=== PATIENT | female | born 1960 | race Caucasian/White ===

== ENCOUNTER 2022-01-23 07:00 | Day surgery (SDC) | payer MEDICAID ==
[2022-01-20 11:15] LABS: BASOPHILS % (AUTO) 0.6 % (0-1); EOSINOPHILS # (AUTO) 0.1 X10'3 (0-0.9); EOSINOPHILS % (AUTO) 1.7 % (0-6); MEAN CORPUSCULAR HEMOGLOBIN 33.3 PG (27.0-31.0); MEAN CORPUSCULAR HGB CONC 33.4 g/dL (33.0-36.5); MEAN CORPUSCULAR VOLUME 99.8 FL (78-98); MEAN PLATELET VOLUME 6.8 FL (7.4-10.4); MONOCYTES # (AUTO) 0.6 X10'3 (0-0.9); MONOCYTES % (AUTO) 7.3 % (2-12); NEUTROPHILS # (AUTO) 6.2 X10'3 (1.8-7.7); NEUTROPHILS % (AUTO) 77.4 % (42-75); PRE OP HEMATOCRIT 48.3 % (35.0-45.0); PRE OP HEMOGLOBIN 16.1 g/dL (12.0-16.0); PRE OP PLATELET COUNT 260 X10'3 (140-440); RED BLOOD COUNT 4.84 X10'6 (4.20-5.60); RED CELL DISTRIBUTION WIDTH 13.6 % (11.5-14.5)
[2022-01-20 11:27] LABS: ALBUMIN 3.9 G/DL (3.4-5.0); ALBUMIN/GLOBULIN RATIO 1.2 (1.1-1.5); ALKALINE PHOSPHATASE 93 IU/L (46-116); BLOOD UREA NITROGEN 14 MG/DL (7-18); CALCIUM 8.8 MG/DL (8.5-10.1); CHLORIDE 103 MMOL/L (99-107); CREATININE 0.56 MG/DL (0.40-0.90); PRE OP ALT 29 U/L (30-65); PRE OP ANION GAP 4 (8-16); PRE OP AST 19 U/L (10-37); PRE OP BILIRUB, TOTAL 0.3 MG/DL (0.0-1.0); PRE OP GLUCOSE 105 MG/DL (70-104); PRE OP POTASSIUM 4.4 MMOL/L (3.4-5.1); PRE OP SODIUM 138 MMOL/L (135-145); TOTAL PROTEIN 7.1 G/DL (6.4-8.2); eGFR > 90 ML/MIN
[2022-01-23] VITALS (11 sets, daily range): BP systolic 117–159; BP diastolic 63–84
[~2022-01-23] VITALS: Ht 157.5 cm; Wt 45.0 kg
[~2022-01-23 07:00] MED LIST: HYDR-3972 PO; ceFAZolin inj. 2,000 MG in dextrose 5%-water 100 ML IV ONE; famotidine 20mg tablet PO ONE; ringers solution, lacted 1,000 ML IV SCH
[2022-01-23] MEDS ORDERED: LIDOcaine 0.5% (5mg/ml) 50ml vial ONE (07:08)
[2022-01-23] MEDS ORDERED: BUPIVAcaine/PF 2.5 mg/ml (0.25%) 30ml vial ONE (07:12)
[2022-01-23] MEDS ORDERED: fentaNYL/PF 50MCG/1 ML 2ML syringe IV PRN ×2 (07:55)
[2022-01-23] MEDS ORDERED: labetalol 20mg/4ml (5mg/ml) syringe IV PRN (07:55)
[2022-01-23] MEDS ORDERED: ondansetron/PF 4mg/2ml inj IV PRN (07:55)
[2022-01-23] MEDS ORDERED: morphine 4 MG/ML inj SYRINge IV PRN (07:55)
[2022-01-23] MEDS ORDERED: ringers solution, lacted 1,000 ML IV SCH (07:55)
[2022-01-23] MEDS ORDERED: hydrALAZINE 20mg/ml inj. IV PRN (07:55)
[2022-01-23] MEDS ORDERED: morphine 2 MG/ML inj. syringe IV PRN (07:55)
[2022-01-23] MEDS ORDERED: fentaNYL/PF 50MCG/1 ML 2ML syringe ONE (10:57)
[2022-01-23] MEDS ORDERED: midazolam 1 mg/ML 2ml injection ONE (10:57)
--- NOTE | 2022-01-23 11:58 | NUR ---
Received from OR via [facility], accompanied by Anesthesiologist DR WARREN and report given by Anesthesiolgist. PT IS AWAKE AND ANSWERING QUESTIONS APPROPRIATELY AND SRIVASTAVA. PT PLACED ON BEDSIDE MONITOR, VSS. PT ON RA ON TOLERATING WELL WITH O2 SAT > 96%. PT HAS 20G PIV TO RT FA WITH LR INFUSING ORDERED. PT HAS DRSG WITH KINA WRAP TO LEFT HAND WELL ELBOW THAT ARE CDI. PT HAS DRSG THAT HAS FOAM TAPE TO LEFT MIDDLE FINGER THAT IS CDI. PT IS ABLE TO MOVE FINGERS ON LEFT HAND. PT DENIES PAIN AT THIS TIME. WILL CONTINUE TO ASSESS
--- NOTE | 2022-01-23 13:40 | NUR ---
ALL DISCHARGE CRITERIA HAS BEEN MET. VSS, PAIN AT A TOLERABLE LEVEL, VOIDING AND ABLE TO SAFELY AMBULATE AND TRANSFER SELF. IV TAKEN OUT WITHOUT ANY COMPLICATIONS. ALL DISCHARGE INSTRUCTIONS COVERED WITH PATIENT AND ALL QUESTIONS ANSWERED. PATIENT TAKEN OUT VIA WHEELCHAIR TO PERSONAL VEHICLE WHERE FRIEND DROVE PATIENT HOME.
== END 2022-01-23 13:34 | disposition home or self-care (01) ==
LOC: PAS 07:00
PROVIDERS: ATTEND Orthopaedic Surgery Hand Surgery
DX: G56.02 Carpal tunnel syndrome, left upper limb (principal); G56.22 Lesion of ulnar nerve, left upper limb; G47.30 Sleep apnea, unspecified; M19.90 Unspecified osteoarthritis, unspecified site; F32.9 Major depressive disorder, single episode, unspecified; F43.10 Post-traumatic stress disorder, unspecified; Q85.09 Other neurofibromatosis; Z79.899 Other long term (current) drug therapy; Z98.890 Other specified postprocedural states; Z90.710 Acquired absence of both cervix and uterus
CPT/HCPCS: 36415; 64718; 64721; 64788; 80053; 82948; 85025; 87811; 93005; J0690; J2250; J2270; J3010; J3490; J7030; J7060; J7120; Z7506; Z7512; A4215; A6449

== ENCOUNTER 2022-02-27 05:55 | Day surgery (SDC) | payer MEDICAID ==
[2022-02-14 11:52] LABS: BASOPHILS # (AUTO) 0.1 X10'3 (0-0.2); BASOPHILS % (AUTO) 0.8 % (0-1); EOSINOPHILS # (AUTO) 0.3 X10'3 (0-0.9); EOSINOPHILS % (AUTO) 3.8 % (0-6); LYMPHOCYTES # (AUTO) 1.2 X10'3 (1.1-4.8); LYMPHOCYTES % (AUTO) 17.2 % (21-51); MEAN CORPUSCULAR HGB CONC 33.4 g/dL (33.0-36.5); MEAN CORPUSCULAR VOLUME 98.7 FL (78-98); MEAN PLATELET VOLUME 6.9 FL (7.4-10.4); MONOCYTES # (AUTO) 0.7 X10'3 (0-0.9); MONOCYTES % (AUTO) 10.3 % (2-12); NEUTROPHILS # (AUTO) 4.8 X10'3 (1.8-7.7); NEUTROPHILS % (AUTO) 67.9 % (42-75); PRE OP HEMATOCRIT 44.7 % (35.0-45.0); PRE OP PLATELET COUNT 266 X10'3 (140-440); RED BLOOD COUNT 4.53 X10'6 (4.20-5.60); RED CELL DISTRIBUTION WIDTH 13.4 % (11.5-14.5)
[2022-02-14 11:59] LABS: ALBUMIN 3.9 G/DL (3.4-5.0); ALBUMIN/GLOBULIN RATIO 1.3 (1.1-1.5); ALKALINE PHOSPHATASE 87 IU/L (46-116); BLOOD UREA NITROGEN 17 MG/DL (7-18); BUN/CREATININE RATIO 27.9 (6.6-38.0); CHLORIDE 104 MMOL/L (99-107); CREATININE 0.61 MG/DL (0.40-0.90); PRE OP ALT 20 U/L (30-65); PRE OP ANION GAP 7 (8-16); PRE OP AST 16 U/L (10-37); PRE OP BILIRUB, TOTAL 0.4 MG/DL (0.0-1.0); PRE OP GLUCOSE 100 MG/DL (70-104); PRE OP POTASSIUM 4.6 MMOL/L (3.4-5.1); PRE OP SODIUM 141 MMOL/L (135-145); TOTAL CARBON DIOXIDE 29.8 MMOL/L (24-32); TOTAL PROTEIN 6.9 G/DL (6.4-8.2); eGFR > 90 ML/MIN
[2022-02-27] VITALS (9 sets, daily range): BP systolic 119–167; BP diastolic 80–100
[~2022-02-27] VITALS: Ht 157.5 cm; Wt 44.3 kg
[~2022-02-27 05:55] MED LIST changes: +CEFAZOLIN IV ONE; +D5W IV ONE; -ceFAZolin inj. 2,000 MG in dextrose 5%-water 100 ML IV ONE; -ringers solution, lacted 1,000 ML IV SCH; +ringers solution, lacted 500 ML IV SCH
[2022-02-27] MEDS ORDERED: BUPIVAcaine/PF 2.5 mg/ml (0.25%) 30ml vial ONE (06:35)
[2022-02-27] MEDS ORDERED: ringers solution, lacted 1,000 ML IV SCH (08:00)
[2022-02-27] MEDS ORDERED: ondansetron/PF 4mg/2ml inj IV PRN (08:00)
[2022-02-27] MEDS ORDERED: morphine 4 MG/ML inj SYRINge IV PRN (08:00)
[2022-02-27] MEDS ORDERED: morphine 2 MG/ML inj. syringe IV PRN (08:00)
[2022-02-27] MEDS ORDERED: meperidine/PF 25mg/ml syringe IV PRN ×3 (08:00)
[2022-02-27] MEDS ORDERED: proCHLORperazine 10 MG/2 ml inj IV PRN (08:00)
[2022-02-27] MEDS ORDERED: sevoflurane 250ml liquid IH ONE (08:02)
[2022-02-27] MEDS ORDERED: cefazolin/dext.iso 2gm/100ml BAG IV ONE (08:02)
[2022-02-27] MEDS ORDERED: fentaNYL/PF 50MCG/1 ML 2ML syringe ONE (08:09)
[2022-02-27] MEDS ORDERED: midazolam 1 mg/ML 2ml injection ONE (08:11)
[2022-02-27] MEDS ORDERED: propofol inj 20 ML IV ONE (08:35)
--- NOTE | 2022-02-27 09:01 | NUR ---
Received from OR via [facility], accompanied by Anesthesiologist DR ESPINOSA and report given by Anesthesiolgist. PT PRESENTS WITH 20G LEFT WRIST, DRESSING ON RIGHT ARM CDI, VSS. PT CAME OUT OF OR WITH LMA IN AND O2 MASK 10L. VSS. Addendum: 02/27/22 at 0913 by Kusum Woods RN, RN Amended: Links added.
--- NOTE | 2022-02-27 09:09 | NUR ---
LMA REMOVED PT SPO2 100% 6L MASK. Addendum: 02/27/22 at 0913 by Kusum Woods RN, RN Amended: Links added.
--- NOTE | 2022-02-27 10:11 | NUR ---
PT UP AND DRESSED, ABLE TO VOID, VSS, DENIES ANY PAIN, PIV D/CD- CANNULA INTACT, DISCUSSED HOME CARE FOR NASAL IRRIGATION AND MEDICATIONS, PT USED OCEAN SPRAY AND OINTMENT BEFORE LEAVING, ALL QUESTIONS ANSWERED, FRESH GAUZE PLACE UNDER NOSE, PT TAKEN WITH SUPPLIES AND BELONGINGS TO VEHICLE, TRANSPORTED BY FRIEND HOME. Addendum: 02/27/22 at 1014 by Kusum Woods RN, RN Amended: Links added.
== END 2022-02-27 10:11 | disposition home or self-care (01) ==
LOC: PAS 05:55
PROVIDERS: ATTEND Orthopaedic Surgery Hand Surgery
DX: G56.01 Carpal tunnel syndrome, right upper limb (principal); D23.61 Other benign neoplasm of skin of right upper limb, including shoulder; Q85.00 Neurofibromatosis, unspecified; M19.90 Unspecified osteoarthritis, unspecified site; G47.30 Sleep apnea, unspecified; F32.9 Major depressive disorder, single episode, unspecified; F43.10 Post-traumatic stress disorder, unspecified; Q85.09 Other neurofibromatosis; L98.8 Other specified disorders of the skin and subcutaneous tissue; Z98.890 Other specified postprocedural states; Z79.899 Other long term (current) drug therapy; Z90.710 Acquired absence of both cervix and uterus
CPT/HCPCS: 11403; 11422; 36415; 64721; 80053; 82948; 85025; A6222; A6402; J0690; J2175; J2250; J2704; J3010; J3490; J7030; J7120; Z7506; Z7512; A4215; A6449